=== PATIENT | male | born 2000 | race Caucasian/White ===

== ENCOUNTER 2021-04-09 21:52 | Emergency (ER) | payer OTHER, SELFPAY ==
--- NOTE | ~2021-04-09 | XR_ITS ---
EXAMINATION: XR ANKLE, LEFT CLINICAL INFORMATION: Pain, twisting injury. COMPARISON: None. TECHNIQUE: AP, lateral, and mortise views of the left ankle. FINDINGS: Significant soft tissue swelling adjacent to the lateral malleolus and anterior surface of the ankle. No unexpected radiopaque foreign bodies or subcutaneous air. No acute fractures or malalignment. The ankle mortise is congruent. XR/XR ankle LT min 3V IMPRESSION: Significant soft tissue swelling along the lateral and anterior surface of the ankle without definite fractures or malalignment.
[2021-04-09 22:01] VITALS: BP 128/83; PULSE 102; RESP 20; TEMP 36.4; O2SAT 100; BMI 36.2
--- NOTE | 2021-04-09 22:50 | ED_ITS ---
HPI - Extremity Injury (Lower) General Chief Complaint: Extremity Injury, Lower Stated Complaint: ankle pain Time Seen by Provider: 04/09/21 22:39 Source: patient Mode of arrival: ambulatory Limitations: no limitations History of Present Illness HPI Narrative: Patient is a 20-year-old male no significant past medical history. He presents emergency department for evaluation of right ankle pain. 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 He is unable to determine which direction this occurred. He has significant pain with weight-bearing, is using crutches to facilitate this. He reports swelling to the side of his ankle. He has not taking any Tylenol or ibuprofen. Denies a ny past injuries to his left ankle and foot. He denies any numbness or tingling to the leg or foot. MD complaint: ankle injury Injury: Left: ankle Place: work Severity: moderate Severity scale (1-10): 5 Relieving factors: immobilization Exacerbating factors: weight bearing and movement Associated symptoms: swelling and able to partially bear weight Other symptoms: none Related Data Allergies Allergy/AdvReac Type Severity Reaction Status Date / Time No Known Allergies Allergy Verified 04/09/21 22:00 [No Known Allergies*] Review of Systems Verdana 4l Review of Systems: Verdana 4d [place] 4Bd Constitutional: [place] 4d No weight loss, fever, chills, weakness or fatigue. [place] 4Bd HEENT: [place] 4d No blurred vision, double vision. No sneezing, congestion, runny nose or sore throat. [place] 4Bd Skin: [place] 4d No rash or itching. Cardiovascular: No chest pain, chest pressure or chest discomfort. No palpitations or pedal edema. Respiratory: No shortness of breath, cough or sputum production. Gastrointestinal: No anorexia, nausea, vomiting or diarrhea. No abdominal pain or blood in stool. Genitourinary: No burning micturition. No urinary frequency or incontinence. Neurologic: No headache, dizziness, syncope, numbness or tingling in the extremities Musculoskeletal: + left ankle pain and swelling as noted in HPI Hematologic: No bleeding or bruising. Lymphatics: No enlarged lymph nodes. Psychiatric:No depression or anxiety. Endocrine: No polyuria or polydipsia. [facility] Past Medical History Attestation statement: The following information was validated with the patient. Source: unable to obtain Social History Social History Advance Directives: No Advance Directives Information Provided: Yes Physical Exam Verdana 4l Vital Signs: Verdana 4d Verdana 4d Vital Signs: Verdana 4d Verdana 4Bd Last Vital Signs Verdana 4d [employer]ing Supervisor New 4d [employer]ing Supervisor New 4d Temp 97.6 F 04/09/21 22:01 Screen Printing Supervisor New 4d Pulse 102 H 04/09/21 22:01 Screen Printing Supervisor New 4d Resp 20 04/09/21 22:01 BP 128/83 04/09/21 22:01 Pulse Ox 100 04/09/21 22:01 BMI result Body Mass Index 36.2 Vital signs have been reviewed as normal and appeared to be correct. Blood pressure normal.? Heart rate normal.? Respiration rate normal. Temperature normal.? Oxygen saturation normal. Appearance: Alert.?Oriented to person, place and time. No acute distress.?Normal affect. Eyes: Pupils equal, round and reactive to light.? ENT: Pharynx normal.?? Neck: Normal inspection.? Neck supple.?? CVS: Heart sounds normal. Normal heart rate and rhythm.? Pulses normal.?? Respiratory: No respiratory distress.? Lung sounds clear to auscultation bilaterally?? Abdomen: Soft and non-tender. Skin: Skin warm and dry.? Normal skin color.? Normal skin turgor.?? Extremities/ MSK: + localized swelling to the left lateral malleolus, no abrasions. Bilateral 2+ DP/PT pulses are palpable. CMS intact to bilateral feet. No calf ttp. Full AROM to left knee and hip. Neuro: Moves all extremities spontaneously. Sensation intact bilaterally. No focal neuro deficits. Patient currently bearing partial weight ambulating with the use of crutches Course Course Course Narrative: Patient is a 20 year old male being evaluated for a mechanical twisting injury of the left ankle. He is well appearing, able to partially weight bear the use crutches. X-ray of the left ankle was obtained which reveals significant soft tissue swelling in the lateral and anterior surface of the colon without definite fractures or malalignment. There is no obvious deformity. Physical exam is most consistent with and lateral ligament sprain. Patient advised of x- ray results come in we discussed plan for discharge home with rest, ice, compression, elevation and the use of Tylenol and NSAIDs in addition to air cast and crutches as needed until weight-bearing can be tolerated. Advised of reasons to return back to the emergency department common to follow-up with his primary care provider. Patient agrees with plan of care. MDM - Extremity Injury (Lower) Medical Records Attestation: I reviewed the patient's medical records. Imaging Data left ankle XR: Attestation: I personally reviewed and interpreted this imaging study as follows: Radiologist's impression: IMPRESSION: Significant soft tissue swelling along the lateral and anterior surface of the ankle without definite fractures or malalignment. Discharge Plan Discharge Clinical Impression: Ankle sprain Patient Disposition: Home, Self-Care Instructions: Ankle Sprain (ED) Additional Instructions: Please return to the emergency department for any new or worsening symptoms or concerns. You can use the crutches and the Aircast to alleviate your pain while walking. As we discussed be sure to apply ice, elevate your leg, and use [id number] Tylenol and NSAIDs for pain and inflammation. You can begin to put more weight on your left ankle as tolerable. Stand Alone Forms: Work/School Release Discharge Date/Time: 04/09/21 23:04
[2021-04-09] MEDS: Ibuprofen 600 MG TABLET PO (23:00)
== END 2021-04-09 23:04 | disposition home or self-care (01) ==
PROVIDERS: Emergency Provider Emergency Medicine
DX: S93.402A Sprain of unspecified ligament of left ankle, initial encounter (principal); X50.1XXA Overexertion from prolonged static or awkward postures, initial encounter; Y93.01 Activity, walking, marching and hiking; Y92.014 Private driveway to single-family (private) house as the place of occurrence of the external cause; Y99.0 Civilian activity done for income or pay
CPT/HCPCS: 73610; 99283; 99284

== ENCOUNTER → 2021-05-14 09:04 | Outpatient (BNVA) | payer OTHER, SELFPAY | PROVIDERS: Visit Provider Physician Assistant | DX: S93.402A Sprain of unspecified ligament of left ankle, initial encounter (principal) | CPT/HCPCS: 99202 ==

== ENCOUNTER 2021-06-05 13:47 | Outpatient (RCR) | payer OTHER, SELFPAY ==
--- NOTE | 2021-06-05 15:30 | MHC.PT.EP ---
[facility] [place] Office [place] Office [place] Office [address] Joe Sandoval [address] [phone] F: [phone] F: [phone] F: [phone] F: [phone] Physical Therapy Plan of Care Date of Evaluation: Date of Surgery: Diagnosis: LEFT ANKLE SPRAIN Assessment: LIMA PRESENTS S/P ANKLE SPRAIN WHEN FOOT HIT POTHOLE AND HE FELL. SWELLING AND EDEMA HAVE RESOLVED AND PAIN IS IMPROVED BUT HE CONTINUES TO REPORT STIFFNESS AND SORENESS. UPON EXAM HE PRESENTS WITH IMPAIRMENTS INCLUDING DECREASED ANKLE ROM, DECREASED FOOT INTRINSIC AND ANKLE STRENGTH, ALTERED GAIT PATTERN, INCREASED PAIN. 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 Pt IS A GOOD CANDIDATE FOR SKILLED PT DUE TO AGE, POTENTIAL REMEDIATION OF IMPAIRMENTS, TYPICAL DISEASE/CONDITION PROGRESSION AND PROGNOSIS, COMORBIDITIES, AND MOTIVATION. Pt WOULD BENEFIT FROM TAILORED PROGRAM OF THERAPEUTIC ACTIVITIES, FUNCTIONAL TRAINING, GAIT TRAINING, POSTURAL EDUCATION, NEUROMUSCULAR RE-EDUCATION, AND MODALITIES NEEDED. Frequency and Duration: The patient will be seen 3 X WEEK FOR 1 WEEK THEN 2X WEEK FOR 4 WEEKS Short Term Goals: INITIATE HEP AND PROMOTE SELF MANAGEMENT OF SYMPTOMS Residential Goals: IN 5 WEEKS: TO DEMONSTRATE FULL ANKLE ROM AND STRENGTH EQUAL [place]AT TO WALK ON LEVEL AND UNEVEN SURFACES WITHOUT PAIN GREATER THAN 2/10 I HEP RETURN TO WORK WITHOUT RESTRICTION Treatment Plan: Modalities to reduce pain, spasms and effusion. Manual therapy to restore motion and function. Therapeutic exercise to improve strength and flexibility. Neuromuscular re-education for posture and balance. Therapeutic activities to return to functional activities of daily living. Electronically signed by: MINOR CHRISTENSEN PT, DPT Please sign and return to therapist. Thank you for your referral.
== END 2021-07-20 10:18 | disposition home or self-care (01) ==
LOC: HO.PT 13:47
PROVIDERS: Visit Provider Physician Assistant
DX: S93.402D Sprain of unspecified ligament of left ankle, subsequent encounter (principal)
CPT/HCPCS: 97110; 97140; 97161

== ENCOUNTER → 2021-06-11 13:03 | Outpatient (BNVA) | payer OTHER, SELFPAY | PROVIDERS: Visit Provider Physician Assistant | DX: S93.402A Sprain of unspecified ligament of left ankle, initial encounter (principal); X58.XXXA Exposure to other specified factors, initial encounter; Y93.9 Activity, unspecified; Y92.9 Unspecified place or not applicable; Y99.8 Other external cause status | CPT/HCPCS: 99212 ==

== ENCOUNTER 2021-11-15 18:48 | Emergency (ER) | payer OTHER, SELFPAY ==
--- NOTE | ~2021-11-15 | CT_ITS ---
EXAMINATION: CT LUMBAR SPINE WITHOUT CONTRAST CLINICAL INFORMATION: Pain, difficulty walking COMPARISON: None TECHNIQUE: Multidetector CT scan lumbar spine with multiplanar reconstructions. This CT examination was performed using dose optimization techniques as appropriate, variously including the following: *Automated exposure control *Adjustment of mA and/or kV according to patient size (this includes techniques or standardized protocols for targeted exams where dose is matched to indication/reason for exam; i.e. extremities or head) *Use of iterative reconstruction technique DLP; 646 mGy-cm FINDINGS: Alignment appears anatomic. No fracture. No spondylolysis or subluxation. No paraspinal soft tissue lesion. Review the disc spaces demonstrate evidence for disc disease seen in a limited fashion. L3-L4 there is mild concentric annular disc bulging without measurable spinal stenosis. L4-L5 demonstrates what appears to be a broad base central disc herniation is significant encroachment of the central canal resulting in at least moderate central canal stenosis. The neural foramina appears mildly narrowed without definite nerve impingement. Minor posterior osteophytic ridging and early disc space narrowing. L5-S1: Moderate size focal central disc herniation also resulting in at least moderate central canal narrowing. No lateralization to result in any neural foraminal stenosis. There could be impingement of the S1 nerve roots at its origin. Lateral recesses spared. CT/CT lumbar spine wo IV con IMPRESSION: There is CT evidence for significant disc disease at L4-L5 and L5 and S1 as detailed above. MRI recommended for definitive characterization electively.
[2021-11-15 19:16] VITALS: BP 124/57; BP 164/72; PULSE 71; PULSE 92; RESP 16; TEMP 36.7; O2SAT 96; O2SAT 99; BMI 35.4
--- NOTE | 2021-11-15 19:48 | ED.BACK ---
HPI - Back Pain/Injury General Chief Complaint: Back Pain/Injury Stated Complaint: BACK PAIN DOWN LEG,UNABLE TO SIT/STAND,DIZZY Time Seen by Provider: 11/15/21 19:23 Source: patient Mode of arrival: ambulatory Limitations: no limitations History of Present Illness HPI Narrative: 21-year-old male with no pertinent PMHx who presents to the ED with lower back pain with radiation to bilateral hips. The patient reports that he has had some mild lower back pain for the past 2 weeks which became acutely worse today after he was playing sports with some friends and he lunged to catch a ball. He denies falling. Describes the pain as a dull ache. He has been ambulatory since the incident but reports that it is painful. Reports severe pain. He denies any paresthesias, sensory changes, saddle anesthesia, loss of urinary or bowel control. He denies any additional complaints at this time including chest pain, shortness of breath, fever, or chills. Related Data Previous Rx's Medication Instructions Recorded cyclobenzaprine 10 mg tablet 10 mg PO BEDTIME PRN muscle spasm 11/15/21 #7 tabs lidocaine 5 % topical patch 1 patch topical DAILY PRN pain #15 11/15/21 ea morphine 15 mg immediate release 15 mg PO BID PRN pain #6 tabs 11/15/21 tablet prednisone 20 mg tablet 40 mg PO DAILY 5 days #10 tabs 11/15/21 Allergies Allergy/AdvReac Type Severity Reaction Status Date / Time No Known Allergies Allergy Verified 06/11/21 13:17 [No Known Allergies*] Review of Systems Review of Systems: Constitutional : No Weight loss, No Fever, No Chills, No Fatigue, No Malaise ENT/Mouth : No sore throat, No Rhinorrhea Eyes: No Eye Pain, No Swelling, No Redness Cardiovascular : No Chest Pain, No SOB, No Dyspnea on Exertion, No Orthopnea, No Edema, No Palpitations Respiratory : No Cough, No Sputum, No Wheezing Gastrointestinal : No Nausea, No Vomiting, No Diarrhea, No Constipation, No abdominal Pain, No Hematochezia, No Melena Genitourinary : No Dysuria, No Urinary Frequency, No Hematuria, Musculoskeletal : +back pain. No joint pain, No Myalgias, No Joint Swelling Skin : No Skin Lesions, No rash Neuro : No Weakness, No Numbness, No Dizziness, No Headache Psych : No Anxiety/Panic, No Depression All other systems reviewed and are negative Yes all other systems are reviewed and are negative [facility] Past Medical History Attestation statement: The following information was validated with the patient. Source: old records reviewed and nursing notes reviewed Social History Social History Advance Directives: No Advance Directives Information Provided: No Physical Exam Vital Signs: Vital Signs: Last Vital Signs Temp 98.1 F 11/15/21 19:16 Pulse 62 11/15/21 22:33 Resp 18 11/15/21 22:33 BP 136/65 11/15/21 22:33 Pulse Ox 98 11/15/21 22:33 O2 Del Method 11/15/21 22:33 BMI result Body Mass Index 35.4 VSS Appearance: Alert.? Oriented X3.? No acute distress.? Head: Normocephalic, atraumatic, no step-offs or deformities Eyes: Pupils equal, round and reactive to light.? Neck: Normal inspection.? Neck supple.? CVS: Normal heart rate and rhythm.? Pulses normal.? Respiratory: No respiratory distress.? Breath sounds normal.? Abdomen: Soft and nontender.? Skin: Skin warm and dry.? Normal skin color.? Normal skin turgor.? Extremities: No lower extremity edema.? No calf ttp. 5/5 strength to bilateral upper and lower extremities. 2 + DTR to b/l patellar region. Back: Tenderness to palpation over the lower lumbar spine throughout and sacral region in midline, no C-spine tenderness, full range of motion, no CVA tenderness bilaterally Neuro: Oriented X 3.? No motor deficit.? No sensory deficit. CN 2-12 intact. No saddle paresthesias. Positive straight leg raise bilaterally. Patient able to ambulate however in significant discomfort. Course Reevaluation(s) Reevaluation #1: CT of the lumbar spine showing significant disc disease from L4-L5 and L5 on S1. There is disc herniation noted and moderate central canal narrowing. And there is also suspected impingement of S1 nerve roots at its origin. Patient medicated with Toradol, Lidoderm patch. Will re-evaluate patient at this time and discussed CT results. Patient's pain likely secondary to herniated disc. There is low suspicion for cauda equina or epidural abscess, history and physical examination not consistent with these. Time: 21:12 Reevaluation #2: I discussed CT results with patient. Educated him that CT is not the best modality to look for back injuries, I explained to him that he may require an MRI for further evaluation and treatment. I suspect that patient has multiple herniated disc contributing to patient's pain. Advised him to follow-up with his PCP he will likely require an MRI for further evaluation and treatment. Upon re-evaluation patient reports improvement in symptoms. Patient ambulating with steady gait. At this time I feel comfortable discharge home with prompt PCP follow-up. Time: 22:56 Reevaluation #3: Discussed this case with uma Mosqueda and discussed CT results. , he recommended adding steroids. At this time patient will be discharged home I explained him he should have prompt Spine and Sport follow-up and prompt follow-up with PCP. Upon discharge patient able to ambulate with steady gait and normal coordination. Time: 23:05 MDM - Back Pain/Injury MDM Narrative Medical decision making narrative: 19:45 PM 21 y/o M presenting with low back pain following lunging for a ball while playing sports. No sensory deficits, saddle anesthesia, urinary/bowel incontinence. PE remarkable for lumbar spine tenderness. GCS 15 NIHSS [address] lumbar spine to rule out acute pathology. Likely sciatica vs. muscle strain vs herniated disc. . Low suspicion for vertebral disc injury or fracture. Unlikely cauda equina or epidural abscess based on patient's H&P. Medical Records Attestation: I reviewed the patient's medical records. Lab Data Attestation: I reviewed the patient's lab results. Critical Care Time Critical Care Time Critical Care Time: No Discharge Plan Discharge Clinical Impression: Lumbosacral disc herniation, Lower back pain Patient Disposition: Home, Self-Care Instructions: Acute Low Back Pain (ED), Back Pain (ED) Additional Instructions: Take your medications as prescribed. If you were prescribed antibiotics today, it is important that you take your medication to their entirety, do not skip any doses, do not finish them early. Follow-up with your primary care provider this week. Return to the emergency department with new or worsening symptoms. Such as fevers, chills, chest pain, shortness of breath, nausea, vomiting, dizziness, headache, vision changes, lethargy In case of emergency call [address] scan results are listed below. It is likely that you may require an MRI for further evaluation and treatment. Please follow-up with your primary care provider to help facilitate this process. Please take medications as prescribed. You can take ibuprofen every 6 hours and Tylenol every 4 as needed for [id number] pain. For more severe pain you can take p.o. morphine as prescribed, please note that this is a narcotic medication, please do not take this while driving or operating machinery, can make you drowsy and there are potential for addiction. FINDINGS: Alignment appears anatomic. No fracture. No spondylolysis or subluxation. No paraspinal soft tissue lesion. Review the disc spaces demonstrate evidence for disc disease seen in a limited fashion. L3-L4 there is mild concentric annular disc bulging without measurable spinal stenosis. L4-L5 demonstrates what appears to be a broad base central disc herniation is significant encroachment of the central canal resulting in at least moderate central canal stenosis. The neural foramina appears mildly narrowed without definite nerve impingement. Minor posterior osteophytic ridging and early disc space narrowing. L5-S1: Moderate size focal central disc herniation also resulting in at least moderate central canal narrowing. No lateralization to result in any neural foraminal stenosis. There could be impingement of the S1 nerve roots at its origin. Lateral recesses spared. CT/CT lumbar spine wo IV con IMPRESSION: There is CT evidence for significant disc disease at L4-L5 and L5 and S1 as detailed above. MRI recommended for definitive characterization electively.? Prescriptions: New cyclobenzaprine 10 mg tablet 10 mg PO BEDTIME PRN (Reason: muscle spasm) Qty: 7 0RF lidocaine 5 % adhesive patch,medicated 1 patch topical DAILY PRN (Reason: pain) Qty: 15 0RF Rx Instructions: leave on most painful area for up to 12 hrs morphine 15 mg tablet 15 mg PO BID PRN (Reason: pain) Qty: 6 0RF Rx Instructions: Partial Fill upon patient request. prednisone 20 mg tablet 40 mg PO DAILY 5 Days Qty: 10 0RF Referrals: [facility] [Provider Group] - 2 days Physician,None [Primary Care Provider] - 2 days Stand Alone Forms: Work/School Release
[2021-11-15] MEDS: Ketorolac Tromethamine 30 MG/ML VIAL IM (20:45)
[2021-11-15] MEDS: Lidocaine 4 % Patch ADH..PATCH 1 PATCH TRANSDERMA (20:45)
[2021-11-15 22:33] VITALS: BP 136/65; PULSE 62; RESP 18; O2SAT 98
[2021-11-15] MEDS: Morphine Sulfate Immed Release 15 MG TABLET PO (22:33)
[2021-11-15] MEDS: dexAMETHasone sod phosphate 4 MG/ML VIAL 8 MG IVPUSH (23:15)
[2021-11-16 00:59] VITALS: BP 127/84; PULSE 84; RESP 18; TEMP 37.1; O2SAT 97
[2021-11-16] MEDS: Morphine Sulfate 2 MG/ML CARTRIDGE IM (01:13)
== END 2021-11-16 01:33 | disposition home or self-care (01) ==
PROVIDERS: Emergency Provider Internal Medicine
DX: K45.8 Other specified abdominal hernia without obstruction or gangrene (principal); M54.50 Low back pain, unspecified; R42 Dizziness and giddiness; Z79.899 Other long term (current) drug therapy
CPT/HCPCS: 72131; 99284; J1100; J1885; J2270

== ENCOUNTER → 2023-09-29 15:14 | Outpatient (AMB) | payer OTHER, SELFPAY ==
--- NOTE | 2023-09-29 15:34 | MHC.OFFWIV ---
Intake Vital Signs 09/29/23 15:39 Height 5 ft 9 in Weight 260 lb BMI 38.4 BP 122/80 Blood Pressure Location Rt brachial Position Sitting Pulse 78 Pulse Source Pulse Oximeter Pulse Oximetry (%) 98 Oxygen Delivery Method Room Air Intake Visit Reasons: POSSIBLE COVID in car call phone # Intake Note: Pt is here c/o Patient Tobacco Use Status: Never used Tobacco Allergies No Known Allergies [No Known Allergies*] Allergy (Verified 09/29/23 15:35) Do you need a note to return to daycare/school/sports/work: Yes HPI HPI Comments History of Present Illness Details Patient is a 23-year-old male complaining of 1 day of sore throat, a dry cough and some head congestion. He denies any shortness of breath, chest pain, wheezing or fevers. He states he took a COVID test this morning at home and it was positive. [facility] Social History Patient Tobacco Use Status: Never used Tobacco Review of Systems Const All systems reviewed & are unremarkable except as noted in HPI and below Physical Exam Vital Signs: Last Vital Signs Pulse 78 09/29/23 15:39 BP 122/80 09/29/23 15:39 Pulse Ox 98 09/29/23 15:39 Oxygen Delivery Method Room Air 09/29/23 15:39 BMI result Body Mass Index 38.4 Const General: cooperative, healthy appearing, comfortable and no acute distress Orientation/consciousness: patient oriented x3 Limitations: no limitations HEENT Head: Yes normal to inspection Ears: hearing grossly normal bilaterally, external ears normal and unable to visualize TM (Cerumen impaction) bilaterally General nose exam: Normal external nose present, Normal nares present and No nasal discharge present Face and sinus: Yes normal facial exam and Yes sinuses nontender Mouth: Normal oral and palatal mucosa present and moist mucous membranes Throat: Yes tonsils normal, Yes uvula midline and Yes posterior oropharynx abnormal (Erythema) Eyes General: appearance normal, both eyes and all related structures Neck Neck: Yes normal visual inspection Resp Effort & Inspection: normal respiratory effort, able to speak in complete sentences, no respiratory distress, not tachypneic, no tripod positioning and no use of accessory muscles Skin General skin exam: no rashes or lesions noted Neuro General: patient oriented x3 Extrem General: Yes normal to inspection and Yes no clubbing, cyanosis or edema Assessment & Plan Assessment & Plan (1) URI (upper respiratory infection): Code(s): J06.9 - Acute upper respiratory infection, unspecified Qualifiers: URI type: unspecified viral URI Qualified Code(s): J06.9 - Acute upper respiratory infection, unspecified Plan: Sent flu COVID RSV testing, advised if it is positive, we are happy to write a work note once we have that test result back. Recommended treating himself with [id number] medications and self isolating until he is feeling better and fever free for 24 hours. Plan See above Orders: Orders SARS-CoV2/FLU/RSV Today J06.9 - Acute upper respiratory infection, unspecified Medications: Discontinued cyclobenzaprine Discontinued Reason: Patient Completed Course 10 mg PO BEDTIME PRN 7 tabs 0RF muscle spasm lidocaine 5% leave on most painful area for up to 12 hrs Discontinued Reason: Patient Completed Course 1 patch topical DAILY PRN 15 ea 0RF pain morphine Partial Fill upon patient request. Discontinued Reason: Patient Completed Course 15 mg PO BID PRN 6 tabs 0RF pain prednisone Discontinued Reason: Patient Completed Course 40 mg (2 x 20 mg) PO DAILY 5 days 10 tabs 0RF Coding Level of Care Code New Pt Level 3 (14189) Diagnoses Viral upper respiratory tract infection J06.9 URI type: unspecified viral URI
[2023-09-29 15:39] VITALS: BP 122/80; PULSE 78; O2SAT 98; BMI 38.4
== END ==
PROVIDERS: Visit Provider Physician Assistant
DX: J06.9 Acute upper respiratory infection, unspecified (principal)
CPT/HCPCS: 99203

== ENCOUNTER 2023-09-29 15:47 | Outpatient (REF) | payer OTHER, SELFPAY | END 2023-09-29 15:48 | disposition home or self-care (01) | LOC: HO.LAB 15:47 | PROVIDERS: Visit Provider Physician Assistant | DX: Z13.89 Encounter for screening for other disorder (principal) ==

== ENCOUNTER 2023-09-30 10:19 | Outpatient (REF) | payer OTHER, SELFPAY ==
[2023-09-30 11:13] LABS: Influenza A PCR NEGATIVE (Negative); Influenza B PCR NEGATIVE (Negative); Resp Syncy Virus RNA Qual PCR NEGATIVE (Negative); SARS COV2 PCR INHOUSE POSITIVE (Negative)
== END 2023-09-30 10:20 | disposition home or self-care (01) ==
LOC: HO.LNP 10:19
PROVIDERS: Visit Provider Physician Assistant
DX: J06.9 Acute upper respiratory infection, unspecified (principal)
CPT/HCPCS: 0241U

== ENCOUNTER 2024-01-05 11:11 | Outpatient (AMB) | payer OTHER, SELFPAY ==
--- NOTE | 2024-01-05 11:13 | MHC.OFFWIV ---
Intake Vital Signs 01/05/24 11:15 Height 5 ft 9 in Weight 263 lb BMI 38.8 BP 118/76 Blood Pressure Location Rt brachial Position Sitting Pulse 91 Pulse Source Pulse Oximeter Temp 98.6 F Temp Source Oral Pulse Oximetry (%) 98 Oxygen Delivery Method Room Air Intake Visit Reasons: EP-sore throat, sob, headache, congestion Intake Note: Patient here for sore throat, SOB, congestion and headache which initially started yesterday. Patient Tobacco Use Status: Never used Tobacco Allergies No Known Allergies [No Known Allergies*] Allergy (Verified 01/05/24 11:15) Do you need a note to return to daycare/school/sports/work: Yes HPI HPI Comments History of Present Illness Details Patient is a 23-year-old male complaining of 2 days of a sore throat, a productive cough with yellow sputum, head congestion, headache and some shortness of breath with exertion. He tells me he did hear some wheezing yesterday morning when he 1st woke up but has since resolved. He tells me he did have a history of asthma as a child but does not use an inhaler currently. He tells me he has tried taking Advil and Mucinex with no improvement in his sore throat or other symptoms. He is able to eat and drink but with pain with swallowing. He tells me his 2 sisters were recently sick with similar symptoms but they both got better without any antibiotics. He did not test for COVID at home. [facility] Social History Patient Tobacco Use Status: Never used Tobacco Review of Systems Const All systems reviewed & are unremarkable except as noted in HPI and below Physical Exam Vital Signs: Last Vital Signs Temp 98.6 F 01/05/24 11:15 Pulse 91 01/05/24 11:15 BP 118/76 01/05/24 11:15 Pulse Ox 98 01/05/24 11:15 Oxygen Delivery Method Room Air 01/05/24 11:15 BMI result Body Mass Index 38.8 Const General: cooperative, healthy appearing, comfortable and no acute distress Orientation/consciousness: patient oriented x3 Limitations: no limitations HEENT Head: Yes normal to inspection Ears: hearing grossly normal bilaterally, external ears normal and unable to visualize TM (Cerumen blockage) bilaterally General nose exam: Normal external nose present, Normal nares present and No nasal discharge present Face and sinus: Yes normal facial exam and Yes sinuses nontender Mouth: Normal oral and palatal mucosa present and moist mucous membranes Throat: Yes tonsils normal, Yes uvula midline and Yes posterior oropharynx abnormal (Erythema) Eyes General: appearance normal, both eyes and all related structures Neck Neck: Yes normal visual inspection Resp Effort & Inspection: normal respiratory effort, able to speak in complete sentences, no respiratory distress, not tachypneic, no tripod positioning and no use of accessory muscles Auscultation: clear to auscultation bilaterally Cardio Rate: regular rate Rhythm: regular rhythm Heart sounds: normal S1 and S2 Skin General skin exam: no rashes or lesions noted Neuro General: patient oriented x3 Extrem General: Yes normal to inspection and Yes no clubbing, cyanosis or edema Office Procedures Cerumen Removal From which ear canal was the cerumen removed: bilateral Removal: irrigation (Able to clear bilaterally) and otoscope w/curette (Attempted on the left ear and was able to remove some of it but not all) Notes: patient tolerated procedure well, no complications and ear canal clear (left side not cleared) [id number] Irrigation/Lavage Results AMB Rapid Strep AMB Rapid Strep Negative Last Edit by KATHERINE Mattson on 01/05/24 11:28 Results Reviewed Results Reviewed: Laboratory Last Values Strep Scn Rapid Clinic Negative 01/05/24 11:27 Assessment & Plan Assessment & Plan (1) URI (upper respiratory infection): Code(s): J06.9 - Acute upper respiratory infection, unspecified Qualifiers: URI type: unspecified viral URI Qualified Code(s): J06.9 - Acute upper respiratory infection, unspecified Plan: Vital signs are stable, patient well-appearing. Lung sounds are clear. No indication for a chest x-ray. Did send flu COVID and RSV testing. Rapid strep in office is negative. We will send an inhaler to pharmacy, recommended continuing Advil and Mucinex. (2) Bilateral impacted cerumen: Code(s): H61.23 - Impacted cerumen, bilateral Plan: Able to remove cerumen in right ear with curette and then irrigation, attempted curette and irriation in left ear but unable to clear completely. Recommended using yack-hnb-hciaame Debrox drops for a few days and then once or twice a month as a preventative. Plan see above Orders: Orders AMB Rapid Strep Screen Today Z13.9 - Encounter for screening, unspecified SARS-CoV2/FLU/RSV Today J06.9 - Acute upper respiratory infection, unspecified Medications: New benzonatate 200 mg PO TID PRN 14 caps 0RF cough albuterol sulfate 90 mcg/actuation 2 puffs inhalation Q6H PRN 8.5 grams 0RF shortness of breath or wheezing or cough Coding Level of Care Code New Pt Level 4 (95489) Diagnoses Viral upper respiratory tract infection J06.9 URI type: unspecified viral URI Bilateral impacted cerumen H61.23 CPT Codes Office Procedure - CPT: 25040-Dcq Irrigation/Lavage ([id number])
[2024-01-05 11:15] VITALS: BP 118/76; PULSE 91; TEMP 37; O2SAT 98; BMI 38.8
== END 2024-01-05 11:54 | disposition home or self-care (01) ==
PROVIDERS: Visit Provider Physician Assistant
DX: J06.9 Acute upper respiratory infection, unspecified (principal); H61.23 Impacted cerumen, bilateral; J02.9 Acute pharyngitis, unspecified

== ENCOUNTER 2024-01-05 11:11 | Outpatient (REF) | payer OTHER, SELFPAY ==
[2024-01-05 14:13] LABS: Influenza A PCR NEGATIVE (Negative); Influenza B PCR NEGATIVE (Negative); Resp Syncy Virus RNA Qual PCR NEGATIVE (Negative); SARS COV2 PCR INHOUSE NEGATIVE (Negative)
== END 2024-01-05 11:12 | disposition home or self-care (01) ==
LOC: HO.LAB 11:11
PROVIDERS: Visit Provider Physician Assistant
DX: J06.9 Acute upper respiratory infection, unspecified (principal); H61.23 Impacted cerumen, bilateral
CPT/HCPCS: 0241U; 69210; 87880

== ENCOUNTER 2024-01-09 11:52 | Outpatient (AMB) | payer OTHER, SELFPAY ==
[2024-01-09 11:57] VITALS: BP 122/80; PULSE 86; TEMP 36.8; O2SAT 98; BMI 38.8
--- NOTE | 2024-01-09 11:57 | AM.OFFWIN_ITS ---
Intake Vital Signs 01/09/24 11:57 Height 5 ft 9 in Weight 263 lb BMI 38.8 BP 122/80 Blood Pressure Location Rt brachial Position Sitting Pulse 86 Pulse Source Pulse Oximeter Temp 98.3 F Temp Source Oral Pulse Oximetry (%) 98 Oxygen Delivery Method Room Air Intake Visit Reasons: shortness breath, congestion Intake Note: pt is here for c/o sob and congestion, was here on the and was given cough medicine and albuterol and still feels congestion Patient Tobacco Use Status: Never used Tobacco Allergies No Known Allergies [No Known Allergies*] Allergy (Verified 01/09/24 11:58) Do you need a note to return to daycare/school/sports/work: No HPI HPI Comments History of Present Illness Details Patient is a 23-year-old male complaining of continued cough and congestion. He tells me he feels like he is getting a little bit better but his cough is really bad at night and last night he did not fall asleep until 04:00. He has been using the albuterol inhaler every 4-6 hours and it does help but it is not helping him at night, he tells me the Tessalon Perles are similar, they help during the day but not at night. He denies any fevers, head congestion, sinus pain or ear pain. He tells me he still has a little bit of shortness of breath with exertion but the inhaler helps him with this. He was seen in this clinic on January 04 where he tested negative for flu COVID RSV and strep throat. He was treated with an albuterol nebulizer and given Tessalon Perles for his cough. [facility] Social History Patient Tobacco Use Status: Never used Tobacco Review of Systems Const All systems reviewed & are unremarkable except as noted in HPI and below Physical Exam Vital Signs: Last Vital Signs Temp 98.3 F 01/09/24 11:57 Pulse 86 01/09/24 11:57 BP 122/80 01/09/24 11:57 Pulse Ox 98 01/09/24 11:57 Oxygen Delivery Method Room Air 01/09/24 11:57 BMI result Body Mass Index 38.8 Const General: cooperative, healthy appearing, comfortable and no acute distress Orientation/consciousness: patient oriented x3 Limitations: no limitations HEENT Head: Yes normal to inspection Ears: hearing grossly normal bilaterally, external ears normal and TM's normal bilaterally General nose exam: Normal external nose present, Normal nares present and No nasal discharge present Face and sinus: Yes normal facial exam and Yes sinuses nontender Mouth: Normal oral and palatal mucosa present and moist mucous membranes Throat: Yes tonsils normal, Yes uvula midline and Yes posterior oropharynx abnormal (Erythema) Eyes General: appearance normal, both eyes and all related structures Neck Neck: Yes normal visual inspection Resp Effort & Inspection: normal respiratory effort, able to speak in complete sentences, Actively coughing, no respiratory distress, not tachypneic, no tripod positioning and no use of accessory muscles Auscultation: clear to auscultation bilaterally Cardio Rate: regular rate Rhythm: regular rhythm Heart sounds: normal S1 and S2 Skin General skin exam: no rashes or lesions noted Neuro General: patient oriented x3 Extrem General: Yes normal to inspection and Yes no clubbing, cyanosis or edema Assessment & Plan Assessment & Plan (1) URI (upper respiratory infection): Code(s): J06.9 - Acute upper respiratory infection, unspecified Qualifiers: URI type: unspecified viral URI Qualified Code(s): J06.9 - Acute upper respiratory infection, unspecified Plan: Vital signs are stable, patient is well-appearing in his lung sounds are clear. No indication for a chest x-ray, recommended he continue with the medications he has already been prescribed. Will send codeine cough syrup, recommended he take this at night and the Mucinex during the day. Plan See above Medications: New codeine-guaifenesin 10-100 mg/5 mL 10 mL PO Q4-6H PRN 120 mL 0RF cold symptoms Coding Level of Care Code New Pt Level 3 (91839) Diagnoses Viral upper respiratory tract infection J06.9 URI type: unspecified viral URI
== END 2024-01-09 12:36 | disposition home or self-care (01) ==
PROVIDERS: Visit Provider Physician Assistant
DX: J06.9 Acute upper respiratory infection, unspecified (principal)

== ENCOUNTER → 2024-01-09 11:52 | Outpatient (BNVA) | payer OTHER, SELFPAY | PROVIDERS: Visit Provider Physician Assistant ==

== ENCOUNTER 2025-02-05 14:44 | Outpatient (AMB) | payer OTHER, SELFPAY ==
[2025-02-05 14:53] VITALS: BP 110/72; PULSE 78; TEMP 36.6; O2SAT 98; BMI 31.7
--- NOTE | 2025-02-05 14:53 | AM.OFFWIN_ITS ---
Intake Vital Signs 02/05/25 14:53 Height 5 ft 9 in Weight 215 lb BMI 31.7 BP 110/72 Blood Pressure Location Rt brachial Position Sitting Pulse 78 Pulse Source Pulse Oximeter Temp 97.9 F Temp Source Oral Pulse Oximetry (%) 98 Oxygen Delivery Method Room Air Intake Visit Reasons: EP stomach bug 2 days ago, work note. Intake Note: pt presents with diarrhea and vomiting beginning yesterday-last vomited yesterday, is now lethargic and weak today Patient Tobacco Use Status: Never used Tobacco Allergies No Known Allergies (No Known Allergies*) Allergy (Verified 02/05/25 14:55) Do you need a note to return to daycare/school/sports/work: Yes HPI HPI Comments History of Present Illness Details History of Present Illness - The patient is a 24 year old individua l presenting with a suspected stomach bug for the past two days. - Symptoms include frequent diarrhea, wh ich was worse yesterday, and vomiting, which has not occurred today since the last episode last night. - The patient denies seeing any blood in the stool. - The patient reports constant, rumbling abdominal pain and has experienced hot flashes and cold sweats, but has not checked for a fever. - Associated symptoms include generalize d body weakness and soreness. - Oral intake has been poor, limited to a piece of toast over the last two days, with some difficulty keeping water down yesterday, although hydration is better today and urination is maintained. - The patient has tried Pepto-Bismol wit h minimal effect. - The patient reports a sick contact his tory, with multiple family members having similar symptoms after Thanksgiving. - He denies fever, chills, chest pain, S OB, melena, hematochezia, cold symptoms, MARTINEZ, dizziness, or weakness. Physical Exam General: Cooperative, healthy appearing, comfortable, no acute distress and well developed Orientation: Patient oriented x3 Limitations: No limitations Respiratory: Normal respiratory effort and able to speak in complete sentences. Clear to auscultation bilaterally Cardiovascular: Regular rate and rhythm. Normal S1 and S2 GI: Hypoactive BS noted. Soft to palpation and nontender, non-distended. No TTP of the abdomen. No guarding or rebound tenderness noted. Skin: No rashes or lesions noted Patient was informed and verbally consented to the use of an ambient scribe for clinic note documentation during this visit PFSH Social History Patient Tobacco Use Status: Never used Tobacco Review of Systems Const All systems reviewed & are unremarkable except as noted in HPI and below Physical Exam Vital Signs: Last Vital Signs Temp 97.9 F 02/05/25 14:53 Pulse 78 02/05/25 14:53 BP 110/72 02/05/25 14:53 Pulse Ox 98 02/05/25 14:53 Oxygen Delivery Method Room Air 02/05/25 14:53 BMI result Body Mass Index 31.7 Assessment & Plan Assessment & Plan (1) Nausea vomiting and diarrhea: Code(s): R11.2 - Nausea with vomiting, unspecified; R19.7 - Diarrhea, unspecified Plan Most likely Viral Gastroenteritis vs viral illness plan - The patient's symptoms are consistent with viral gastroenteritis, likely norovirus, given the history of sick contacts with similar GI symptoms. - Advised against taking medications like Pepto-Bismol to allow the virus to be cleared from the system through diarrhea. - Recommended supportive care with a clear liquid diet (e.g., chicken broth, Jell-O, water, Gatorade), advancing to a BRAT diet (bananas, rice, applesauce, toast) as tolerated. - Advised to gradually return to a regular diet - Provided a work excuse with an estimated return date of the 4th, with the instruction to remain out of work until afebrile and free from vomiting for 24 hours. - Emphasized the importance of good handwashing and disinfecting household surfaces with bleach to prevent further spread. - Instructed to return for evaluation if symptoms worsen, such as developing a high fever or noticing blood in vomit or stool. - work note given to the patient Coding Level of Care Code Est Pt Level 3 (56486) Diagnoses Nausea vomiting and diarrhea R11.2; R19.7
--- OUTSIDE RECORDS SUMMARY | 2025-02-05 16:37 | XMS_ITS | Encounter Summary ---
Author Organization [facility] Address [address] [place] [id number] Phone Care Team Providers Care Destaticizer Feeder Name Role Phone Fransisco Baldwin MD Primary Care Provider [phone] Encounter Details Date Type Department Care Team (Late st Contact Info) Description 02/05/2013 Documentation [facility] [place] [address] [place] [address] Family Medicine, Physician [address] [place], [place] [phone] Social History Tobacco Use Types Packs/Day Years Used Date Smoking Tobacco: Never Assessed Sex and Gender Information Value Date Recorded Sex Assigned at Not on file Legal Sex Male 5:24 PM EDT Gender Identity Not on file Sexual Orientation Not on file documented as of this encounter Plan of Treatment Not on file documented as of this encounter Visit Diagnoses Not on filedocumented in this encounter Care Teams Destaticizer Feeder Relationship Specialty Start Date End Date Fransisco Baldwin MD [address] [facility] [place] [address] PCP - General 10/15/16 03/25/22 documented as of this encounter
--- OUTSIDE RECORDS SUMMARY | 2025-02-05 16:37 | XMS_ITS | Clinical Summary ---
Author Organization [facility] Address [address] [place] [address] Phone Care Team Providers Care Manager Placement Name Role Phone Unavailable Primary Care Provider Unavailabl e Allergies No known active allergies Medications No known medications Active Problems Problem Noted Date Diagnosed Date Acne 10/13/2013 Mild intermittent asthma without complication Immunizations Immunization Administration Dates Next Due DTaP 5 07/17/2003, 1,1999,09/27,1999 HPV Vaccine 9 Valent 02/06/2015 HPV, Quadrivalent 02/04/2014 Hep A, ped/adol 05/11/2016,02/06/2015 Hep B, ped/adol 1999,1999,1999 Hib (PRP-T) 09/14/2000, 0,1999,07/23 IPV 07/20/2003, 1,1999,07/23 Influenza Split 12/03/2011,12/10/2010,02/13/2010 Influenza, injectable, quadrivalent 02/06/2015,1 04/07/2013 Influenza, injectable, quadr ivalent, preservative free 02/22/2017,03/26/2016,03/21/2013 Influenza, injectable, trivalent 009,01/30/2008,05/08/2007,03/13 MMR 07/17/2003,06/06/2000 Meningococcal B Trumenba 02/07/2018,08/08/2017 Meningococcal Conj (Menactra) MCV4P 05/11/2016,0 09/28/2010 Pneumococcal Conjugate 06/06/2000,03/09/2000, Tdap 09/28/2010 Varicella 09/28/2010,09/14/2000 Family History Medical History Relation Name Comments ETTA disease Father Diabetes Mother Obesity Mother Relation Name Status Comments Father Alive Father: GERD Mother Alive Mother: Sleep A pnea / Diabetes / Obesity Sister Alive Sister: Asthma / ADHD, Alive and well Social History Tobacco Use Types Packs/Day Years Used Date Smoking Tobacco: Never Smokeless Tobacco: Never Comments:Never smoker Sex and Gender Information Value Date Recorded Sex Assigned at Not on file Legal Sex Male 5:24 PM EDT Gender Identity Not on file Sexual Orientation Not on file Last Filed Vital Signs Vital Sign Reading Time Taken Comments Blood Pressure 116/74 06/07/2017 1:46 PM EDT Pulse 72 06/07/2017 1:27 PM EDT Temperature 36.6 C (97.9 F) 06/07/2017 1:27 PM EDT Respiratory Rate - - Oxygen Saturation 98% 01/11/2017 2:57 PM EST Inhaled Oxygen Concentration - - Weight 96.5 kg (212 lb 12.8 oz) 06/07/2017 1:27 PM EDT Height 172.7 cm (5' 8 ) 06/07/2017 1:27 PM EDT Body Mass Index 32.36 06/07/2017 1:27 PM EDT Plan of Treatment Health Maintenance Due Date Last Done Comments DTaP,Tdap,and Td Vaccines (7 - Td or Tdap) 09/28/2020 09/28/2010, 07/17/2003, 12/16/2000, Additional history exists Influenza Vaccines (#1) 2024 01/31/20 18, 02/22/2017, 03/26/2016, Additional history exists COVID-19 Vaccine (2024-2 6 season) 2024 02/26/2021, 07/23/2020, 06/25/2020 Hepatitis B Vaccines Completed 1999, 1999, 1999 Pneumococcal Vaccine Completed 06/06/2000, 03/09/2000, 1999 HIB Vaccines Completed 09/14/2000, 12/06, 1999, Additional history exists MMR Vaccines Completed 07/17/2003, 06/06/2000 IPV Vaccines Completed 07/20/2003, 12/05, 1999, Additional history exists Varicella Vaccines Completed 09/28/2010, 09/14/2000 HPV Vaccines Completed 02/06/2015, 02/04/2014 Hepatitis A Vaccines Completed 05/11/2016, 02/07/20 15 Meningococcal Vaccine Completed 05/11/2016, 011 Men B Vaccine Completed 02/07/2018, 08/08/2017 Insurance [facility]
--- OUTSIDE RECORDS SUMMARY | 2025-02-05 16:37 | XMS_ITS | Encounter Summary ---
Author Organization [facility] Address [address] [place] [address] Phone Care Team Providers Care Physical Aerodynamicist Name Role Phone Fransisco Baldwin MD Primary Care Provider [phone] Encounter Details Date Type Department Care Team (Late st Contact Info) Description 09/25/2013 Documentation [facility] [place] Family Medicine [address] [place] [address] Family Medicine, Physician [address] [place], [place] [phone] Social History Tobacco Use Types Packs/Day Years [...] on filedocumented in this encounter Care Teams Physical Aerodynamicist Relationship Specialty Start Date End Date Fransisco Baldwin MD [address] [place] [address] PCP - General 10/15/16 03/25/22 documented as of this encounter
--- OUTSIDE RECORDS SUMMARY | 2025-02-05 16:37 | XMS_ITS | Encounter Summary ---
Author Organization [facility] Address [address] [place] [address] Phone Care Team Providers Care Membership Sales Manager Name Role Phone Fransisco Baldwin MD Primary Care Provider [phone] Encounter Details Date Type Department Care Team (Late st Contact Info) Description 08/20/2016 [place] [facility] [place] [address] [place] [address] Family Medicine, Physician [address] [phone] Social History Tobacco Use Types Packs/Day Years Used Date Smoking Tobacco: Never Comments:Never smoker Sex and Gender Information Value Date Recorded Sex Assigned at Not on file Legal Sex Male 5:24 PM EDT Gender Identity Not on file Sexual Orientation Not on file documented as of this encounter Plan of Treatment Not on file documented as of this encounter Visit Diagnoses Not on filedocumented in this encounter Care Teams Membership Sales Manager Relationship Specialty Start Date End Date Fransisco Baldwin MD [address] [facility] [place] [address] PCP - General 10/15/16 03/25/22 documented as of this encounter
--- OUTSIDE RECORDS SUMMARY | 2025-02-05 16:37 | XMS_ITS | Encounter Summary ---
Author Organization [facility] Address [address] [place] [address] Phone Care Team Providers Care Boat Oar Maker Name Role Phone Fransisco Baldwin MD Primary Care Provider [phone] Encounter Details Date Type Department Care Team (Late st Contact Info) Description 10/21/2016 Conversion Encounter [place] [facility] [place] [address] [place] [address] Social History Tobacco Use Types Packs/Day Years [...] on filedocumented in this encounter Care Teams Boat Oar Maker Relationship Specialty Start Date End Date Fransisco Baldwin MD [address] [place] [address] PCP - General 10/15/16 03/25/22 documented as of this encounter
--- OUTSIDE RECORDS SUMMARY | 2025-02-05 16:37 | XMS_ITS | Encounter Summary ---
Author Organization [facility] Address [address] [place] [address] Phone Care Team Providers Care Professor Of Forestry Name Role Phone Fransisco Baldwin MD Primary Care Provider [phone] Encounter Details Date Type Department Care Team (Late st Contact Info) Description 08/25/2016 Documentation [facility] [place] [address] [place] [address] Family Medicine, Physician [address] [place] [phone] Social History Tobacco Use Types Packs/Day Years [...] on filedocumented in this encounter Care Teams Professor Of Forestry Relationship Specialty Start Date End Date Fransisco Baldwin MD [address] [place] [address] PCP - General 10/15/16 03/25/22 documented as of this encounter
--- OUTSIDE RECORDS SUMMARY | 2025-02-05 16:37 | XMS_ITS | Encounter Summary ---
Author Organization [facility] Address [address] [place] [address] Phone Care Team Providers Care Senior Hardware Engineer Name Role Phone Fransisco Baldwin MD Primary Care Provider [phone] Encounter Details Date Type Department Care Team (Late st Contact Info) Description 08/25/2016 Documentation [facility] [place] Family Medicine [address] [place] [address] Family Medicine, Physician [address] [phone] Social History Tobacco Use Types Packs/Day Years [...] on filedocumented in this encounter Care Teams Senior Hardware Engineer Relationship Specialty Start Date End Date Fransisco Baldwin MD [address] [facility] [place] [address] PCP - General 10/15/16 03/25/22 documented as of this encounter
== END 2025-02-05 15:43 | disposition home or self-care (01) ==
PROVIDERS: Visit Provider Physician Assistant Medical
DX: R11.2 Nausea with vomiting, unspecified (principal); R19.7 Diarrhea, unspecified

== ENCOUNTER 2025-02-08 15:44 | Outpatient (AMB) | payer OTHER, SELFPAY ==
[2025-02-08 15:46] VITALS: BP 102/60; PULSE 76; TEMP 36.7; O2SAT 97; BMI 37.5
--- NOTE | 2025-02-08 15:46 | AM.OFFWIN_ITS ---
Intake Vital Signs 02/08/25 15:46 Height 5 ft 9 in Weight 254 lb BMI 37.5 BP 102/60 Blood Pressure Location Rt brachial Position Sitting Pulse 76 Pulse Source Pulse Oximeter Temp 98.0 F Temp Source Oral Pulse Oximetry (%) 97 Oxygen Delivery Method Room Air Intake Visit Reasons: EP nausea, headaches Intake Note: pt presents wtih non resolving nausea and headaches Patient Tobacco Use Status: Never used Tobacco Allergies No Known Allergies (No Known Allergies*) Allergy (Verified 02/08/25 15:51) Do you need a note to return to daycare/school/sports/work: Yes HPI HPI Comments History of Present Illness Details This is a 24-year-old male who presented to the walk-in clinic complaining of persistent nausea and headaches. Patient was evaluated at the walk-in clinic on 02/05/2025 for nausea/vomiting/diarrhea and diagnosed with viral gastroenteritis. Patient was treated conservatively with rest, hydration, and clear liquid/bland diet as tolerated. Patient states that his vomiting/diarrhea has completely resolved and he has not had any vomiting or diarrhea for the past 2 days. However, he states that the nausea has persisted and he continues to have a frontal headache. He denies any associated neurological symptoms such as slurred speech, facial asymmetry, visual changes, or numbness/weakness/paresthesias of his extremities. He states he has been able to tolerate liquids such as water and Gatorade; however, he still has not been eating much due to the nausea. He has been having normal bowel movements for the past 2 days. [facility] Social History Patient Tobacco Use Status: Never used Tobacco Review of Systems Const All systems reviewed & are unremarkable except as noted in HPI and below Reports no additional complaints Eyes Reports no additional complaints ENT Reports no additional complaints Card Reports no additional complaints Resp Reports no additional complaints GI Reports no additional complaints Reports no additional complaints Musc Reports no additional complaints Skin/Breast Reports system reviewed and no additional complaints, except as documented Neuro Reports no additional complaints Psych Reports no additional complaints Endo Reports no additional complaints Sathish/Lymph Reports no additional complaints Aller/Immun Reports no additional complaints Physical Exam Exam Exam: Vital signs reviewed. Constitutional: Non-toxic appearing. No acute distress. Well-developed and well-nourished. HEENT: Normocephalic and atraumatic. PERRL/EOMI. Skin: Warm and dry. No rashes or lesions noted. Neck: Full and painless range of motion. No cervical lymphadenopathy. Cardio: Regular rate and rhythm. No murmurs, gallops, or rubs. No lower extremity edema. No JVD. Pulmonary: No respiratory distress. No accessory muscle usage. Clear to auscultation bilaterally without wheezing, crackles, or rhonchi. Gastrointestinal: Soft, non-tender, and non-distended in all 4 quadrants. Normoactive bowel sounds in all 4 quadrants. Musculoskeletal: Normal range of motion in joints throughout the body. No deformity or other signs of injury. Neuro: Alert and oriented x4. Cranial nerves 2-12 grossly intact. No focal deficits appreciated. Psych: Normal mood and affect. Vital Signs: BMI result Body Mass Index 37.5 Assessment & Plan Assessment & Plan (1) Gastroenteritis: Code(s): K52.9 - Noninfective gastroenteritis and colitis, unspecified Plan This is a 24-year-old male who presented to the walk-in clinic complaining of persistent nausea and headaches following treatment for viral gastroenteritis. His vomiting and diarrhea have resolved but he continues to have nausea and headaches. Patient's abdomen is soft, nontender, and nondistended with normoactive bowel sounds so acute abdomen versus obstruction unlikely. His nausea appears to be related to recent viral gastroenteritis. I sent PO ondansetron 8 mg every 8 hours as needed for nausea/ vomiting. Patient was encouraged to continue with a bland diet as tolerated as well as to increase his hydration and try Pedialyte. His neurological exam is intact; his headache is likely related to mild dehydration and stress/anxiety in the setting of his recent viral gastroenteritis. Patient was advised to follow-up here or proceed to the emergency room if he were to develop any abdominal pain, fever/chills, inability to tolerate oral intake, visual disturbances, slurred speech, or facial asymmetry. Patient verbalized understanding and is agreeable with the plan. Medications: New ondansetron 8 mg PO Q8H PRN 14 tabs 0RF nausea and vomiting Coding Level of Care Code Est Pt Level 3 (05236) Diagnoses Gastroenteritis K52.9
--- OUTSIDE RECORDS SUMMARY | 2025-02-08 19:38 | XMS_ITS | Clinical Summary ---
Author Organization [facility] Address [address] [place] [id number] Phone Care Team Providers Care Locker Operator Name Role Phone Unavailable Primary Care Provider [...] Men B Vaccine Completed 02/07/2018, 08/08/2017 Insurance [facility]
--- OUTSIDE RECORDS SUMMARY | 2025-02-08 19:38 | XMS_ITS | Encounter Summary ---
Author Organization [facility] Address [address] [place] [id number] Phone Care Team Providers Care Nut Tapper Name Role Phone Fransisco Baldwin MD Primary Care Provider [phone] Encounter Details Date Type Department Care Team (Late st Contact Info) Description 08/25/2016 Documentation [facility] [place] Family Medicine [address] [place] [address] Family Medicine, Physician [address], [place] [phone] Social History Tobacco Use Types Packs/Day Years [...] on filedocumented in this encounter Care Teams Nut Tapper Relationship Specialty Start Date End Date Fransisco Baldwin MD [address] [facility] [place] [address] PCP - General 10/15/16 03/25/22 documented as of this encounter
--- OUTSIDE RECORDS SUMMARY | 2025-02-08 19:38 | XMS_ITS | Encounter Summary ---
Author Organization [facility] Address [address] [place] [address] Phone Care Team Providers Care Certified Adapted Physical Educator Name Role Phone Fransisco Baldwin MD Primary Care Provider [phone] Encounter Details Date Type Department Care Team (Late st Contact Info) Description 10/21/2016 Conversion Encounter [facility] [address] [place] [address] Social History Tobacco Use Types Packs/Day Years [...] on filedocumented in this encounter Care Teams Certified Adapted Physical Educator Relationship Specialty Start Date End Date Fransisco Baldwin MD [address] [place] [address] PCP - General 10/15/16 03/25/22 documented as of this encounter
--- OUTSIDE RECORDS SUMMARY | 2025-02-08 19:38 | XMS_ITS | Encounter Summary ---
Author Organization [facility] Address [address] [place] [address] Phone Care Team Providers Care Streetcar Operator Name Role Phone Fransisco Baldwin MD Primary Care Provider [phone] Encounter Details Date Type Department Care Team (Late st Contact Info) Description 08/25/2016 Documentation [facility] [place] [address] [place] [address] Family Medicine, Physician [address] [place], [place] [phone] Social History Tobacco Use Types Packs/Day Years [...] on filedocumented in this encounter Care Teams Streetcar Operator Relationship Specialty Start Date End Date Fransisco Baldwin MD [address] [place] [address] PCP - General 10/15/16 03/25/22 documented as of this encounter
--- OUTSIDE RECORDS SUMMARY | 2025-02-08 19:38 | XMS_ITS | Encounter Summary ---
Author Organization [facility] Address [address] [place] [phone] Phone Care Team Providers Care Felt Washing Machine Tender Name Role Phone Fransisco Baldwin MD Primary Care Provider [phone] Encounter Details Date Type Department Care Team (Late st Contact Info) Description 08/20/2016 Documentation [facility] [place] Medicine [address] [place] [address] Family Medicine, Physician [address] [place] [phone] Social History Tobacco Use Types Packs/Day Years [...] on filedocumented in this encounter Care Teams Felt Washing Machine Tender Relationship Specialty Start Date End Date Fransisco Baldwin MD [address] [facility] [address] PCP - General 10/15/16 03/25/22 documented as of this encounter
--- OUTSIDE RECORDS SUMMARY | 2025-02-08 19:38 | XMS_ITS | Encounter Summary ---
Author Organization [facility] Address [address] [place] [address] Phone Care Team Providers Care Pr Manager Name Role Phone Fransisco Baldwin MD Primary Care Provider [phone] Encounter Details Date Type Department Care Team (Late st Contact Info) Description 09/25/2013 Documentation [place] Family Medicine [address] [place] [address] Family Medicine, Physician [address] [place], [place] [phone] Social History Tobacco Use Types Packs/Day Years [...] on filedocumented in this encounter Care Teams Pr Manager Relationship Specialty Start Date End Date Fransisco Baldwin MD [address] [facility] [place] [address] PCP - General 10/15/16 03/25/22 documented as of this encounter
--- OUTSIDE RECORDS SUMMARY | 2025-02-08 19:38 | XMS_ITS | Encounter Summary ---
Author Organization [facility] Address [address] [place] [address] Phone Care Team Providers Care Taping Supervisor Name Role Phone Fransisco Baldwin MD Primary Care Provider [phone] Encounter Details Date Type Department Care Team (Late st Contact Info) Description 02/05/2013 Documentation [facility] [place] Family Medicine [address] [place] [address] Family Medicine, Physician [address] [place], [place] [phone] Social History Tobacco Use Types Packs/Day Years [...] on filedocumented in this encounter Care Teams Taping Supervisor Relationship Specialty Start Date End Date Fransisco Baldwin MD [address] [facility] [place] [address] PCP - General 10/15/16 03/25/22 documented as of this encounter
== END 2025-02-08 16:12 | disposition home or self-care (01) ==
PROVIDERS: Visit Provider Physician Assistant Medical
DX: K52.9 Noninfective gastroenteritis and colitis, unspecified (principal)